=== PATIENT | male | born 1995 | race Caucasian/White ===

== ENCOUNTER 2017-06-25 05:12 | Emergency (ER) | payer SELFPAY ==
[~2017-06-25] VITALS: Ht 170.2 cm; Wt 73.0 kg
[2017-06-25] MEDS ORDERED: TETANUS, DIPHTHERIA, PERTUSSIS VAC/PF 0.5ML (>7YR OLD) IM ONE (08:00)
[2017-06-25] MEDS ORDERED: LIDOCAINE HCL 1% 20ML VIAL (Pyxis) INJ INFIL ONE (08:00)
[2017-06-25] MEDS ORDERED: ACETAMINOPHEN 325MG TABLET PO ONE (08:15)
[2017-06-25] MEDS ORDERED: BACITRACIN ZINC OINT UDPKT TOP ONE (10:30)
[2017-06-25 10:57] VITALS: BP 114/76
== END 2017-06-25 10:58 | disposition home or self-care (01) ==
LOC: ER 05:12
DX: S61.210A Laceration without foreign body of right index finger without damage to nail, initial encounter (principal); S60.410A Abrasion of right index finger, initial encounter; F17.200 Nicotine dependence, unspecified, uncomplicated; W26.0XXA Contact with knife, initial encounter; Y08.89XA Assault by other specified means, initial encounter; Y93.89 Activity, other specified; Y92.89 Other specified places as the place of occurrence of the external cause; Y99.8 Other external cause status
CPT/HCPCS: 90471; 90715; 99283; A4217; J3490; X7700; Z7610

== ENCOUNTER 2018-03-22 21:27 | Emergency (ER) | payer SELFPAY ==
[~2018-03-22] VITALS: Ht 167.6 cm; Wt 71.0 kg
[2018-03-22] MEDS ORDERED: BACITRACIN ZINC OINT UDPKT TOP ONE (22:30)
[2018-03-22] MEDS ORDERED: TETANUS, DIPHTHERIA, PERTUSSIS VAC/PF 0.5ML (>7YR OLD) IM ONE (22:30)
[2018-03-22] MEDS ORDERED: MORPHINE SULFATE 10 MG/ML CPJ IV ONE (23:15)
[2018-03-22] MEDS ORDERED: MORPHINE SULFATE 4 MG/ML CPJ (NOT FOR IM USE) IV NR (23:45)
[2018-03-23] MEDS ORDERED: HYDROCODONE/ACETAMINOPHEN 5/325MG TABLET PO ONE (03:45)
[2018-03-23 10:19] VITALS: BP 119/78
== END 2018-03-23 10:42 | disposition short-term general hospital (02) ==
LOC: ER 21:27
DX: S61.216A Laceration without foreign body of right little finger without damage to nail, initial encounter (principal); S64.496A Injury of digital nerve of right little finger, initial encounter; W26.0XXA Contact with knife, initial encounter; Y93.9 Activity, unspecified; Y92.89 Other specified places as the place of occurrence of the external cause
CPT/HCPCS: 73120; 73200; 90471; 90715; 96374; 99285; J2270; X7700

== ENCOUNTER 2019-12-26 18:00 | Emergency (ER) | payer SELFPAY ==
[~2019-12-26] VITALS: Ht 165.1 cm; Wt 80.0 kg
[2019-12-26] MEDS ORDERED: TETANUS, DIPHTHERIA, PERTUSSIS VAC/PF 0.5ML (>7YR OLD) IM ONE (18:45)
[2019-12-26] MEDS ORDERED: BACITRACIN ZINC OINT UDPKT TOP ONE (18:45)
[2019-12-26 19:00] VITALS: BP 119/92
== END 2019-12-26 19:03 | disposition home or self-care (01) ==
LOC: ER 18:00
DX: S40.852A Superficial foreign body of left upper arm, initial encounter (principal); Z88.0 Allergy status to penicillin; X58.XXXA Exposure to other specified factors, initial encounter; Y93.89 Activity, other specified; Y92.89 Other specified places as the place of occurrence of the external cause; Y99.8 Other external cause status
CPT/HCPCS: 90471; 90715; 99283